=== PATIENT | male | born 1985 | race Caucasian/White ===

== ENCOUNTER 2018-08-26 06:39 | Day surgery (SDC) | payer OTHER ==
[2018-08-26 07:26] LABS: ADD MAN DIFF? NO
[2018-08-26 07:35] LABS: BASOPHILS % 0.4 % (0.0-2.0); EOSINOPHILS # 0.2 10^3/ul (0.0-0.5); EOSINOPHILS % 1.8 % (0.0-7.0); HEMATOCRIT 41.1 % (42.0-52.0); HEMOGLOBIN 13.7 g/dl (14.0-18.0); LYMPHOCYTES # 1.5 10^3/ul (0.8-2.9); LYMPHOCYTES % 17.4 % (15.0-51.0); MEAN CORPUSCULAR HEMOGLOBIN 29.8 pg (29.0-33.0); MEAN CORPUSCULAR HGB CONC 33.3 g/dl (32.0-37.0); MEAN CORPUSCULAR VOLUME 89.5 fl (82.0-101.0); MEAN PLATELET VOLUME 8.6 fl (7.4-10.4); MONOCYTE # 0.5 10^3/ul (0.3-0.9); NEUTROPHIL # 6.4 10^3/ul (1.6-7.5); NEUTROPHILS % 74.2 % (39.0-77.0); PLATELET COUNT 243 10^3/UL (140-415); RED BLOOD COUNT 4.59 10^6/ul (4.70-6.10); RED CELL DISTRIBUTION WIDTH 12.6 % (11.5-14.5)
[2018-08-26 07:35] LABS: WHITE BLOOD COUNT 8.6 10^3/ul (4.8-10.8)
[2018-08-26] MEDS ORDERED: SOD CHLORIDE 0.9% 1,000 ML IV (08:00)
[2018-08-26 08:24] LABS: ALANINE AMINOTRANSFERASE 34 IU/L (13-69); ALBUMIN 3.7 g/dl (3.3-4.9); ALBUMIN/GLOBULIN RATIO 1.23; ALKALINE PHOSPHATASE 56 IU/L (42-121); ANION GAP 12 (8-16); ASPARTATE AMINO TRANSFERASE 29 IU/L (15-46); BILIRUBIN,INDIRECT 1.1 mg/dl (0-1.1); BILIRUBIN,TOTAL 1.1 mg/dl (0.2-1.3); BLOOD UREA NITROGEN 15 mg/dl (7-20); CALCIUM 9.2 mg/dl (8.4-10.2); CARBON DIOXIDE 28 mmol/L (21-31); CHLORIDE 103 mmol/L (97-110); CREATININE 0.82 mg/dl (0.61-1.24); GLUCOSE 90 mg/dl (70-220); POTASSIUM 3.7 mmol/L (3.5-5.1); SODIUM 139 mmol/L (135-144); TOTAL PROTEIN 6.7 g/dl (6.1-8.1)
[2018-08-26] MEDS ORDERED: MIDAZOLAM 1 MG/ML 2 ML INJ (09:49)
[2018-08-26] MEDS ORDERED: FENTAnyl 50 MCG/ML VIAL (09:50)
[2018-08-26] MEDS ORDERED: LIDOCAINE 2% (SDV) 5 ML INJ (09:51)
[2018-08-26] MEDS ORDERED: CEFAZOLIN 1 GM INJ (09:51)
[2018-08-26] MEDS ORDERED: PROPOFOL 20 ML (09:51)
[2018-08-26] MEDS ORDERED: ONDANSETRON 4 MG INJ (09:51)
[2018-08-26 10:01] LABS: INR 0.98; PROTIME 13.1 Sec (11.9-14.9)
[2018-08-26 10:02] LABS: PARTIAL THROMBOPLASTIN TIME 33.2 Sec (23.0-35.0)
[2018-08-26] MEDS: CEFAZOLIN 2 GM/50 ML (PMX) 50 ML IVPB (10:15)
[2018-08-26] MEDS: POLYMYXIN/BACITRACIN 1L IRRIG IRR (10:37)
[2018-08-26] MEDS ORDERED: DEXAMETHASONE 4 MG/ML 1 ML INJ (10:53)
[2018-08-26] MEDS ORDERED: ROPIVACAINE 0.2% 20 ML VIAL (10:53)
[2018-08-26] MEDS ORDERED: LIDOCAINE 1% (MDV) 20 ML INJ (10:54)
[2018-08-26] MEDS ORDERED: HYDROCODONE/APAP (5/325) TAB PO (11:00)
[2018-08-26] MEDS: HYDROmorphONE 1 MG/5 ML IV SYRINGE IV (12:05)
== END 2018-08-26 13:44 | disposition home or self-care (01) ==
LOC: SDS 06:39
DX: K40.30 Unilateral inguinal hernia, with obstruction, without gangrene, not specified as recurrent (principal)
CPT/HCPCS: 49507; 80053; 85025; 85610; 85730

== ENCOUNTER 2019-06-28 12:58 | Emergency (ER) | payer OTHER ==
[2019-06-28] MEDS: DIPHTH/TET/ACEL PERTUSS (ADULT) 0.5 ML VIAL IM* (14:02)
== END 2019-06-28 14:58 | disposition home or self-care (01) ==
LOC: FTE 12:58
DX: S71.112A Laceration without foreign body, left thigh, initial encounter (principal); W54.0XXA Bitten by dog, initial encounter; Y92.830 Public park as the place of occurrence of the external cause; Z23 Encounter for immunization
CPT/HCPCS: 12002; 90471; 90715; 99283-25

== ENCOUNTER 2019-06-30 13:33 | Emergency (ER) | payer OTHER | END 2019-06-30 13:52 | disposition home or self-care (01) | LOC: E/R 13:52 | DX: Z48.01 Encounter for change or removal of surgical wound dressing (principal) | CPT/HCPCS: 99281; Z7502 ==

== ENCOUNTER 2019-07-03 15:40 | Emergency (ER) | payer OTHER | END 2019-07-03 16:00 | disposition home or self-care (01) | LOC: E/R 16:00 | DX: Z48.02 Encounter for removal of sutures (principal) | CPT/HCPCS: 99281; Z7502 ==

== ENCOUNTER 2019-08-26 13:14 | Emergency (ER) | payer OTHER | END 2019-08-26 15:47 | disposition home or self-care (01) | LOC: FTE 13:14 | DX: S90.511A Abrasion, right ankle, initial encounter (principal); X58.XXXA Exposure to other specified factors, initial encounter; Y92.9 Unspecified place or not applicable | CPT/HCPCS: 99282; Z7502 ==